=== PATIENT | male | born 1955 | race Hispanic/Latino ===

== ENCOUNTER 2018-08-23 09:25 | Emergency (ER) | payer SELFPAY ==
[~2018-08-23] VITALS: Ht 157.5 cm; Wt 80.0 kg
[~2018-08-23 09:25] MED LIST: CELEXA20 MG PO; CITALOPRAM20 MG PO; DOXYCYCL HYC100 MG PO; LOVASTATIN10 MG PO; METOPROL TAR25 MG PO; NEXIUM 24HR20 MG PO; PROTONIX40 MG PO; TAMSULOSIN0.4 MG PO
[2018-08-23 10:02] LABS: HEMATOCRIT 44.8 % (39.0-50.0); HEMOGLOBIN 15.7 g/dl (14.0-18.0); IMMATURE GRANULOCYTES 1.5 % (0.0-5.0); MEAN CELL VOLUME 88.5 fL CALC (80.0-100.0); NEUT# 4.14 thou/uL (1.82-7.42); RED BLOOD COUNT 5.06 mill/uL (4.70-6.10); RED CELL DISTRI WIDTH 12.6 % (11.5-15.5)
[2018-08-23] MEDS ORDERED: PROSTATE MED (10:12)
[2018-08-23 10:28] LABS: ALBUMIN 4.4 g/dL (3.2-5.0); ALKALINE PHOSPHATASE 81 u/l (38-126); ANION GAP 14 (6-22 (CALC)); BILIRUBIN, TOTAL 1.8 mg/dL (0.0-1.4); BUN 19 mg/dL (8-23); BUN/CREATININE RATIO 29 (12-20 (CALC)); CARBON DIOXIDE 26 mmol/l (22-30); CHLORIDE 104 mmol/l (95-108); CREATININE 0.6 mg/dL (0.7-1.3); GFR > 60 ML/MIN (>=60 (CALC)); GFR FOR AFR.AMER. > 60 ML/MIN (>=60 (CALC)); LIPASE 372 u/l (23-300); POTASSIUM 3.8 mmol/l (3.5-5.1); SGOT/AST 40 u/l (19-48); SODIUM 140 mmol/l (137-146); TOTAL PROTEIN 7.3 g/dL (6.3-8.2)
[2018-08-23 10:53] LABS: INFLUENZA A NONE DETECTED (NONE DETECT); INFLUENZA B NONE DETECTED (NONE DETECT)
[2018-08-23 11:02] LABS: URINE BILIRUBIN - DIPSTICK NEGATIVE (NEGATIVE); URINE BLOOD DIPSTICK TRACE-INTACT (NEGATIVE); URINE COLOR YELLOW; URINE GLUCOSE - DIPSTICK NEGATIVE (NEGATIVE); URINE KETONE NEGATIVE (NEGATIVE); URINE LEUK ESTERASE NEGATIVE (NEGATIVE); URINE NITRITE - DIPSTICK NEGATIVE (Negative); URINE PROTEIN - DIPSTICK NEGATIVE (NEG-TRACE); URINE UROBILINOGEN - DIPSTICK 0.2 E.U./dL (0.2)
[2018-08-23 11:03] LABS: URINE CLARITY CLEAR
[2018-08-23] MEDS ORDERED: PROTONIX40 M2 PO (13:23)
[2018-08-23] MEDS ORDERED: ULTRAM50 MG PO (13:23)
[2018-08-23] MEDS ORDERED: ONDANSETRON4 MG PO (13:23)
[2018-08-23 13:35] VITALS: BP 143/67
== END 2018-08-23 13:35 | disposition home or self-care (01) | DRG 440 ==
LOC: ED 09:25
PROVIDERS: Emergency Medicine
DX: K85.90 Acute pancreatitis without necrosis or infection, unspecified (principal); R51 Headache; I10 Essential (primary) hypertension
CPT/HCPCS: Q9967

== ENCOUNTER 2018-08-29 20:01 | Emergency (ER) | payer OTHER ==
[~2018-08-29] VITALS: Ht 157.5 cm; Wt 81.8 kg
[~2018-08-29 20:01] MED LIST changes: +ONDANSETRON4 MG PO; +PROSTATE MED; +PROTONIX40 M2 PO; +ULTRAM50 MG PO
[2018-08-29 21:02] LABS: HEMATOCRIT 46.4 % (39.0-50.0); HEMOGLOBIN 16.8 g/dl (14.0-18.0); MEAN CELL VOLUME 86.7 fL CALC (80.0-100.0); MEAN CORPUSCULAR HGB 31.4 pG CALC (26.0-32.0); MEAN CORPUSCULAR HGB CONC 36.2 g/L CALC (32.0-36.0); NEUT# 9.03 thou/uL (1.82-7.42); RED BLOOD COUNT 5.35 mill/uL (4.70-6.10); RED CELL DISTRI WIDTH 12.6 % (11.5-15.5)
[2018-08-29 21:16] LABS: ALBUMIN 4.7 g/dL (3.2-5.0); BILIRUBIN, TOTAL 1.8 mg/dL (0.0-1.4); POTASSIUM 4.1 mmol/l (3.5-5.1); TOTAL PROTEIN 7.6 g/dL (6.3-8.2)
[2018-08-29 21:19] LABS: PROTHROMBIN TIME 10.3 SECONDS (9.0-12.5)
[2018-08-29 21:21] LABS: CREATININE 1.8 mg/dL (0.7-1.3)
[2018-08-29 22:56] VITALS: BP 120/64
== END 2018-08-29 22:56 | disposition short-term general hospital (02) | DRG 282 ==
LOC: ED 20:01
PROVIDERS: Emergency Medicine
DX: I21.4 Non-ST elevation (NSTEMI) myocardial infarction (principal); I48.91 Unspecified atrial fibrillation; I10 Essential (primary) hypertension

== ENCOUNTER 2018-09-05 13:30 | Emergency (ER) | payer SELFPAY | END 2018-09-05 13:33 | disposition left against medical advice (07) | DRG 951 | LOC: ED 13:30 → LWOBS 13:33 → ED 13:51 | DX: Z91.19 Patient's noncompliance with other medical treatment and regimen (principal) ==

== ENCOUNTER 2020-02-24 | Emergency (ER) | payer SELFPAY ==
[2020-02-24] MEDS ORDERED: [UNRECOGNIZED DRUG - OTHER] PO (10:34)
[2020-02-24] MEDS ORDERED: ALLERGY RELF10 M3 PO (10:35)
[2020-02-24] MEDS ORDERED: ASPIRIN 81 LOW81 MG PO (10:36)
[2020-02-24] MEDS ORDERED: DULERA1 AE1 IN (10:36)
[2020-02-24] MEDS ORDERED: PROMETHAZINE12.5 M3 RE (10:37)
[2020-02-24] MEDS ORDERED: ARNUITY EL50 MCG/ACT IN (10:37)
== END 2020-02-24 11:55 | disposition home or self-care (01) | DRG 153 ==
DX: J06.9 Acute upper respiratory infection, unspecified (principal); J30.2 Other seasonal allergic rhinitis; I10 Essential (primary) hypertension; Z20.828 Contact with and (suspected) exposure to other viral communicable diseases